=== PATIENT | male | born 1980 | race Caucasian/White ===

== ENCOUNTER 2025-02-14 12:39 | Emergency (ER) | payer OTHER ==
[~2025-02-14] VITALS: Ht 172.7 cm; Wt 83.5 kg
[2025-02-14 13:20] VITALS: BP 118/72
[2025-02-14] MEDS ORDERED: IBUPROFEN 600 MG TABLET ONE (13:38)
[2025-02-14] MEDS ORDERED: NEOMY/BACITRA/POLYMYXIN B OINT UD PACKET TP ONE (13:39)
[2025-02-14] MEDS: IBUPROFEN 600 MG TABLET PO ONE (13:45)
[2025-02-14] MEDS: NEOMY/BACITRA/POLYMYXIN B OINT UD PACKET TP ONE (13:45)
[2025-02-14] MEDS: TDAP DIPH,PERTUSS,TET VAC/PF 0.5 ML DISP.SYRIN IM ONE (14:16)
[2025-02-14] MEDS ORDERED: IBUP-1955 PO (14:20)
[2025-02-14] MEDS ORDERED: TDAP DIPH,PERTUSS,TET VAC/PF 0.5 ML DISP.SYRIN IM ONE ×2 (14:20→14:34)
[2025-02-14] MEDS ORDERED: CEPH500C2 PO (14:30)
[2025-02-14 14:39] VITALS: BP 118/72; TEMP 97.8; O2SAT 98
== END 2025-02-14 14:41 | disposition home or self-care (01) ==
LOC: ER 12:39
DX: S67.196A Crushing injury of right little finger, initial encounter (principal); W23.2XXA Caught, crushed, jammed or pinched between a moving and stationary object, initial encounter; Y93.89 Activity, other specified; Y92.89 Other specified places as the place of occurrence of the external cause; Y99.8 Other external cause status
CPT/HCPCS: 73130; 90715; A4606; A4663

== ENCOUNTER 2025-02-20 10:10 | Emergency (ER) | payer OTHER ==
[~2025-02-20] VITALS: Ht 172.7 cm; Wt 83.5 kg
[~2025-02-20 10:10] MED LIST: CEPH500C2 PO; IBUP-1955 PO
[2025-02-20 10:12] VITALS: BP 123/87
[2025-02-20 11:08] VITALS: BP 125/88; TEMP 98; O2SAT 99
== END 2025-02-20 11:09 | disposition home or self-care (01) ==
LOC: ER 10:10
DX: S62.636A Displaced fracture of distal phalanx of right little finger, initial encounter for closed fracture (principal); S61.316A Laceration without foreign body of right little finger with damage to nail, initial encounter; X58.XXXA Exposure to other specified factors, initial encounter; Y93.89 Activity, other specified; Y92.89 Other specified places as the place of occurrence of the external cause; Y99.8 Other external cause status
CPT/HCPCS: A4606; A4663